=== PATIENT | female | born 1965 | race Caucasian/White ===

== ENCOUNTER 2017-06-20 20:11 | Observation (INO) | payer OTHER ==
[2017-06-20] MEDS ORDERED: NS 1,000 ML IV ONE (20:36)
[2017-06-20] MEDS ORDERED: ONDANSETRON 4 MG/2 ML VIAL IVP ONE (20:36)
[2017-06-20] MEDS ORDERED: HYDROmorphONE/DILAUDID 1 MG/ML INJ IVP ONE (20:36)
[2017-06-20] MEDS ORDERED: HYDROmorphONE/DILAUDID 1 MG/ML INJ ONE (20:37)
[2017-06-20] MEDS ORDERED: ONDANSETRON 4 MG/2 ML VIAL ONE (20:37)
--- NOTE | 2017-06-20 20:39 | EDPHY ---
H & P Stated Complaint: abd pain, possible diverticulitis Time Seen by Provider: 06/20/17 20:30 HPI/ROS: CHIEF COMPLAINT: Left lower quadrant pain HISTORY OF PRESENT ILLNESS: Patient is a 51-year-old female visiting from [facility] who comes to the emergency department complaining of left lower quadrant abdominal pain. She states that initially began last week and persisted for about 4 days before resolving. She has had diverticulitis before and thought that it might go away on its own. She felt better for 2 days and then her symptoms returned yesterday. She has not had a fever. She does feel nauseous but has not vomited. She has had diarrhea nonbloody. No urinary symptoms. No vaginal symptoms. History of hysterectomy. No other intra- abdominal surgeries. She has had a tummy tuck. REVIEW OF SYSTEMS: Constitutional: denies: chills, fever, recent illness, recent injury EENTM: denies: blurred vision, double vision, nose congestion Respiratory: denies: cough, shortness of breath Cardiac: denies: chest pain, irregular heart rate, lightheadedness, palpitations Gastrointestinal/Abdominal: denies: abdominal pain, diarrhea, nausea, vomiting, blood streaked stools Genitourinary: denies: dysuria, frequency, hematuria, pain Musculoskeletal: denies: joint pain, muscle pain Skin: denies: lesions, rash, jaundice, bruising Neurological: denies: headache, numbness, paresthesia, tingling, dizziness, weakness Hematologic/Lymphatic: denies: blood clots, easy bleeding, easy bruising Immunologic/allergic: denies: HIV/AIDS, transplant EXAM: GENERAL: Well-appearing, well-nourished and in no acute distress. HEAD: Atraumatic, normocephalic. EYES: Pupils equal round and reactive to light, extraocular movements intact, sclera anicteric, conjunctiva are normal. ENT: TMs normal, nares patent, oropharynx clear without exudates. Moist mucous membranes. NECK: Normal range of motion, supple without lymphadenopathy or JVD. LUNGS: Breath sounds clear to auscultation bilaterally and equal. No wheezes rales or rhonchi. HEART: Regular rate and rhythm without murmurs, rubs or gallops. ABDOMEN: Left lower quadrant tenderness with mild rebound tenderness. BACK: No CVA tenderness, no spinal tenderness, step-offs or deformities EXTREMITIES: Normal range of motion, no pitting or edema. No clubbing or cyanosis. NEUROLOGICAL: Cranial nerves II through XII grossly intact. Normal speech, normal gait. 5/5 strength, normal movement in all extremities, normal sensation PSYCH: Normal mood, normal affect. SKIN: Warm, dry, normal turgor, no visible rashes or lesions. Source: Patient Exam Limitations: No limitations - Personal History LMP (Females 10-55): Post Menopausal Current Tetanus/Diphtheria Vaccine: Yes - Medical/Surgical History Hx Asthma: No Hx Chronic Respiratory Disease: No Hx Diabetes: No Hx Cardiac Disease: No Hx Renal Disease: No Hx Cirrhosis: No Hx Alcoholism: No Hx HIV/AIDS: No Hx Splenectomy or Spleen Trauma: No Other PMH: PSHx: hysterectomy, back surgery 2000, breast augmentation and tummy tuck in 2005. PMHx: HTN, depression, anxiety, high cholesterol, diverticulitis - Family History Significant Family History: No pertinent family hx - Social History Smoking Status: Never smoked Alcohol Use: None Drug Use: None Constitutional: Initial Vital Signs Temperature (C) 36.9 C 06/20/17 20:13 Heart Rate 103 H 06/20/17 20:13 Respiratory Rate 16 06/20/17 20:13 Blood Pressure 119/74 06/20/17 20:13 O2 Sat (%) 89 L 06/20/17 20:13 O2 Delivery Mode Nasal Cannula O2 (L/minute) 4 Allergies/Adverse Reactions: No Known Allergies Allergy (Verified 06/21/17 08:25) Home Medications: Medication Instructions Recorded Atorvastatin Calcium [Lipitor 10 10 mg PO DAILY 06/21/17 mg (*)] Ibuprofen [Motrin (*)] 200 - 600 mg PO Q6H PRN 06/21/17 Lurasidone HCl [Latuda] 40 mg PO HS 06/21/17 Mometasone Furoate 2 spray EACHNARE DAILY 06/21/17 Olmesartan Medoxomil 40 mg PO DAILY 06/21/17 Sertraline HCl [Zoloft 50mg (*)] 200 mg PO DAILY 06/21/17 Triamterene/Hctz 37.5/25 1 tab PO DAILY 06/21/17 [Maxzide-25 (*)] levOFLOXACIN [levAQUIN (*)] 750 mg PO DAILY #8 tab 06/21/17 metroNIDAZOLE [Flagyl 500 mg (*)] 500 mg PO Q8H #24 tab 06/21/17 Medical Decision Making - Diagnostics EKG Interpretation: An EKG obtained and was read and documented in trace view. Please see trace view for full reading and report. Sinus rhythm no acute ischemic changes Imaging: Discussed imaging studies w/ call center consultant Radiologist ED Course/Re-evaluation: The patient has been slightly hypoxic since she arrived at triage. She denies being short of breath. She denies any cough. She denies any history of asthma or COPD or smoking. She does not have any chest pain. No leg pain or swelling. I turned off her oxygen and watched as her saturations dropped to 76% on room air. It increased appropriately to 92% on 2 L. We tried multiple occasions for the pulse oximeter. It is showing good waveform. The patient remained completely comfortable and in no distress even when her oxygen was 76%. She states that she felt normal. I will obtain a chest x-ray and EKG. 10:00 p.m. the patient remains hypoxic at 76% on room air after her DuoNeb. She remains asymptomatic. She is not tachypneic or tachycardic. She does not feel uncomfortable. I will order a CT angiogram to further evaluate specially considering her recent travel. 10:[address] p[address] we discussed the CT results. The patient is relieved. Her diverticulitis is mild and may be treated as an outpatient. It is unclear to me why she has persistently desaturated. She is currently holding 94% on room air. We have a different pulse oximeter on each hand. 10:57 p.m. the patient persistently desaturates when she is on room air. After a road test she desaturate to 82% and did feel slightly short of breath while walking. I will admit her to the medical service for further evaluation and observation. Possibly echocardiogram. She states that she has never had any heart problems. I discussed the case with Dr. Brown who will admit to the medical service. Differential Diagnosis: Partial list of the Differential diagnosis considered include but were not limited to; diverticulitis, bronchitis, reactive airway disease, PE and although unlikely based on the history and physical exam, I also considered dissection, valvular abnormality, ventricular septal defect, high-altitude pulmonary edema. - Data Points Laboratory Results: Laboratory Results 06/20/17 20:40 06/20/17 20:40 Medications Given: Discontinued Medications Acetaminophen (Tylenol) 650 mg PO Q4HRS PRN PRN Reason: Pain, Mild/Fever, Can Take PO Stop: 12/17/17 23:02 Last Admin: 06/21/17 11:17 Dose: 650 mg Hydrocodone Bitart/Acetaminophen ([place] 5/325) 1 - 2 tab PO Q4HRS PRN PRN Reason: Pain, Moderate Able to Take PO Stop: 06/30/17 23:02 Last Admin: 06/21/17 08:22 Dose: 1 tab Albuterol/Ipratropium (Duoneb) 3 ml IH EDNOW ONE Stop: 06/20/17 21:19 Last Admin: 06/20/17 21:37 Dose: 3 ml Hydromorphone HCl (Dilaudid) 0.5 mg IVP EDNOW ONE Stop: 06/20/17 20:37 Last Admin: 06/20/17 20:46 Dose: 0.5 mg Sodium Chloride (Ns) 1,000 mls @ 0 mls/hr IV EDNOW ONE; Wide Open PRN Reason: Protocol Stop: 06/20/17 20:37 Last Admin: 06/20/17 20:47 Dose: 1,000 mls Levofloxacin/Dextrose (Levaquin 750 Mg (Premix)) 150 mls @ 100 mls/hr IV EDNOW ONE PRN Reason: Protocol Stop: 06/20/17 22:05 Last Admin: 06/20/17 22:32 Dose: 150 mls Metronidazole/Sodium Chloride (Flagyl 500 Mg (Premix)) 100 mls @ 100 mls/hr IV EDNOW ONE PRN Reason: Protocol Stop: 06/20/17 21:36 Last Admin: 06/20/17 21:03 Dose: 100 mls Levofloxacin (Levaquin) 500 mg PO DAILY SONNY PRN Reason: Protocol Stop: 07/21/17 08:59 Last Admin: 06/21/17 08:22 Dose: 500 mg Metronidazole (Flagyl) 500 mg PO Q8H SONNY PRN Reason: Protocol Stop: 07/21/17 04:59 Last Admin: 06/21/17 13:34 Dose: 500 mg Ondansetron HCl (Zofran) 4 mg IVP EDNOW ONE Stop: 06/20/17 20:37 Last Admin: 06/20/17 20:47 Dose: 4 mg Sertraline HCl (Zoloft) 200 mg PO DAILY SONNY Stop: 12/18/17 12:44 Last Admin: 06/21/17 13:34 Dose: 200 mg Triamterene/HCTZ (Maxzide-25) 1 each PO DAILY SONNY Stop: 12/18/17 12:44 Last Admin: 06/21/17 13:34 Dose: 1 each Departure - Departure Disposition: [facility] Acute Clinical Impression: Diverticulitis large intestine w/o perforation or abscess w/o bleeding, Hypoxia Condition: Fair
[2017-06-20 20:50] LABS: PLATELET COUNT 412 10^3/uL (150-400)
[2017-06-20] MEDS ORDERED: IPRATROPIUM/ALBUTEROL 3 ML DEYVIAL IH ONE (21:18)
--- NOTE | 2017-06-20 21:30 | CPEKG ---
Heart Rate: 78 RR Interval: 769 P-R Interval: 156 QRSD Interval: 80 QT Interval: 380 QTC Interval: 433 P [place]: 51 QRS [place]: 32 T Wave [place]: 56 EKG Severity - NORMAL ECG - EKG Impression: SINUS RHYTHM Electronically Signed By: Jackson Gross 20-Jun-2017 21:31:21
[2017-06-20] MEDS ORDERED: IOPAMIDOL (ISOVUE 370) 100 ML BTL IV ONE (22:07)
[2017-06-20] MEDS ORDERED: HYDROCODONE/APAP 5/325 TAB PO PRN (23:03)
[2017-06-20] MEDS ORDERED: HYDROmorphONE/DILAUDID 1 MG/ML INJ IVP PRN (23:03)
[2017-06-20] MEDS ORDERED: ONDANSETRON 4 MG/2 ML VIAL IVP PRN (23:03)
--- NOTE | 2017-06-20 23:28 | PDGENHP ---
History and Physical - Chief Complaint LLQ abdominal pain - History of Present Illness Source - Patient provides history and appears reliable. EMR reviewed and case discussed with ED provider. HPI - Pleasant 51 yo F with pmhx significant for HTN, HLD, anxiety/depression, MONIQUE who presents to the ED with complaints of 1 week history of LLQ abdominal pain that is constant, cramping. Patient last exacerbation was 4 years ago that responded to conservative mangement and antibiotics. She reports increased fatigue in the past week but no fevers/chills. + nausea/no vomiting. At time of my interview patient reported that pain had nearly resolved s/p narcotics. Patient appeared to be doing well from GI standpoint after pain medications and antibiotics however it was noted that patient had worsening O2 saturations. Patient denies any dizziness or chest pain. No hx orthopnea, PND, LE edema. pt with history of MONIQUE normally on CPAP but had desaturations as low as mid 70% with exertion. Patient noted some lightheadedness when this occurred. History Information - Allergies/Home Medication List Allergies/Adverse Reactions: No Known Allergies Allergy (Unverified 06/20/17 20:12) Home Medications: Atorvastatin Calcium 06/20/17 [Last Taken Unknown] Latuda 06/20/17 [Last Taken Unknown] Olmesartan Medoxomil 06/20/17 [Last Taken Unknown] Sertraline HCl 06/20/17 [Last Taken Unknown] Triamterene 06/20/17 [Last Taken Unknown] I have personally reviewed and updated: family history, medical history, social history, surgical history - Past Medical History Additional medical history: HTN. MONIQUE on CPAP. depression/anxiety. HLD. obesity. diverticulitis (2012) - Surgical History Additional surgical history: Hyst. abdominoplasty. breast augmentation. laminectomy. back surery L4/5, L5/S1. colonoscopy - Family History Additional family history: mother - diverticulitis. HTN - Social History Smoking Status: Never smoked Alcohol Use: Occasionally Drug Use: None Additional social history: Patient lives in [facility]. She is visiting her son who lives locally. COR - FULL. patient desires daughter Fatou Mchugh or sister Frances Maldonado to act as proxy if needed. Review of Systems Review of Systems: ROS: 10pt was reviewed & negative except for what was stated in HPI & below EENMT: Reports: nose congestion (chronic rhinorrhea). Denies: sore throat Physical Exam Physical Exam: Selected Entries 06/20/17 20:13 Blood Pressure Automatic Method Heart Rate 103 H Respiratory 16 Rate O2 Sat (%) 89 L Temperature (C) 36.9 C Blood Pressure 119/74 Mean Arterial 89 Pressure (MAP) O2 Delivery Room Air Mode Temperature Oral Source Temp Pulse Resp BP Pulse Ox 36.9 C 84 18 108/61 96 06/20/17 20:13 06/20/17 22:33 06/20/17 22:33 06/20/17 22:33 06/20/17 22:33 Constitutional: no apparent distress, appears nourished, obese, No unkempt Eyes: PERRL, anicteric sclera, EOMI Ears, Nose, Mouth, Throat: dry mucous membranes, other (no nasal discharge. ) Cardiovascular: regular rate and rhythym, no murmur, rub, or gallop, pulses symmetric bilaterally Peripheral Pulses: 2+: dorsalis-pedis (R), dorsalis-pedis (L) Respiratory: no respiratory distress, no rales or rhonchi, clear to auscultation Gastrointestinal: soft, non-tender abdomen, no palpable masses, distension ( mildly distended. soft. ), other (TTP LLQ with light palpation. hypoactive BS.) , No guarding, No rebound Genitourinary: no bladder tenderness, No zapata in urethra Skin: warm, normal color, No rash Musculoskeletal: full muscle strength, No joint tenderness, No generalized weakness Neurologic: AAOx3, sensation intact bilaterally, other (nonfocal exam) Psychiatric: not anxious, not encephalopathic, thought process linear Lab Data & Imaging Review 06/21/17 04:43 06/21/17 04:43 WBC 14.49 10^3/uL (3.80-9.50) H 06/20/17 20:40 RBC 4.37 10^6/uL (4.18-5.33) 06/20/17 20:40 Hgb 13.0 g/dL (12.6-16.3) 06/20/17 20:40 Hct 38.0 % (38.0-47.0) 06/20/17 20:40 MCV 87.0 fL (81.5-99.8) 06/20/17 20:40 MCH 29.7 pg (27.9-34.1) 06/20/17 20:40 MCHC 34.2 g/dL (32.4-36.7) 06/20/17 20:40 RDW 12.3 % (11.5-15.2) 06/20/17 20:40 Plt Count 412 10^3/uL (150-400) H 06/20/17 20:40 MPV 9.3 fL (8.7-11.7) 06/20/17 20:40 Neut % (Auto) 78.3 % (39.3-74.2) H 06/20/17 20:40 Lymph % (Auto) 13.4 % (15.0-45.0) L 06/20/17 20:40 [place] % (Auto) 5.5 % (4.5-13.0) 06/20/17 20:40 Eos % (Auto) 1.9 % (0.6-7.6) 06/20/17 20:40 Baso % (Auto) 0.6 % (0.3-1.7) 06/20/17 20:40 Nucleat RBC Rel Count 0.0 % (0.0-0.2) 06/20/17 20:40 Absolute Neuts (auto) 11.36 10^3/uL (1.70-6.50) H 06/20/17 20:40 Absolute Lymphs (auto) 1.94 10^3/uL (1.00-3.00) 06/20/17 20:40 Absolute Monos (auto) 0.79 10^3/uL (0.30-0.80) 06/20/17 20:40 Absolute Eos (auto) 0.28 10^3/uL (0.03-0.40) 06/20/17 20:40 Absolute Basos (auto) 0.08 10^3/uL (0.02-0.10) 06/20/17 20:40 Absolute Nucleated RBC 0.00 10^3/uL (0-0.01) 06/20/17 20:40 Immature Gran % 0.3 % (0.0-1.1) 06/20/17 20:40 Immature Gran # 0.04 10^3/uL (0.00-0.10) 06/20/17 20:40 Sodium 138 mEq/L (134-144) 06/20/17 20:40 Potassium 3.8 mEq/L (3.5-5.2) 06/20/17 20:40 Chloride 97 mEq/L (97-110) 06/20/17 20:40 Carbon Dioxide 27 mEq/l (22-31) 06/20/17 20:40 Anion Gap 14 mEq/L (8-16) 06/20/17 20:40 BUN 12 mg/dL (7-23) 06/20/17 20:40 Creatinine 1.0 mg/dL (0.6-1.0) 06/20/17 20:40 Estimated GFR 58 06/20/17 20:40 Glucose 129 mg/dL (70-100) H 06/20/17 20:40 Calcium 9.7 mg/dL (8.5-10.4) 06/20/17 20:40 Total Bilirubin 0.5 mg/dL (0.1-1.4) 06/20/17 20:40 Conjugated Bilirubin 0.3 mg/dL (0.0-0.5) 06/20/17 20:40 Unconjugated Bilirubin 0.2 mg/dL (0.0-1.1) 06/20/17 20:40 AST 25 IU/L (14-46) 06/20/17 20:40 ALT 35 IU/L (9-52) 06/20/17 20:40 Alkaline Phosphatase 92 IU/L (38-126) 06/20/17 20:40 Total Protein 7.0 g/dL (6.3-8.2) 06/20/17 20:40 Albumin 4.3 g/dL (3.5-5.0) 06/20/17 20:40 Lipase 168 IU/L (23-300) 06/20/17 20:40 Urine Color PALE YELLOW 06/20/17 21:35 Urine Appearance CLEAR 06/20/17 21:35 Urine pH 8.0 (5.0-7.5) H 06/20/17 21:35 Ur Specific [place] 1.004 (1.002-1.030) 06/20/17 21:35 Urine Protein NEGATIVE (NEGATIVE) 06/20/17 21:35 Urine Ketones NEGATIVE (NEGATIVE) 06/20/17 21:35 Urine Blood NEGATIVE (NEGATIVE) 06/20/17 21:35 Urine Nitrate NEGATIVE (NEGATIVE) 06/20/17 21:35 Urine Bilirubin NEGATIVE (NEGATIVE) 06/20/17 21:35 Urine Urobilinogen NEGATIVE EU (0.2-1.0) 06/20/17 21:35 Ur Leukocyte Esterase NEGATIVE (NEGATIVE) 06/20/17 21:35 Urine RBC 3-5 /hpf (0-3) H 06/20/17 21:35 Urine WBC 1-3 /hpf (0-3) 06/20/17 21:35 Ur Epithelial Cells TRACE /lpf (NONE-1+) 06/20/17 21:35 Urine Glucose NEGATIVE (NEGATIVE) 06/20/17 21:35 Imaging Review: Chest, PA and lateral. History: Dyspnea Findings: Heart size is within normal limits. Pulmonary vascularity is normal. The lungs are clear. No evidence of pleural effusion or pneumothorax. Minimal degenerative change is seen in the thoracic spine. Impression: No evidence of acute cardiopulmonary abnormality. Dictated By: Hubert Marin MD CT Scan of the Abdomen and Pelvis (With Contrast) Indication: Abd Pain . Comparison: None Technique: 90 mL of Isovue-370 were given intravenously by machine power injection. Multidetector helical CT imaging was performed from the diaphragm to the symphysis pubis. Dose reduction techniques were utilized. Findings: Abdomen: Liver is normal in attenuation. No focal liver lesion. Gallbladder is unremarkable. Pancreas unremarkable. Spleen is unremarkable. Both adrenal glands are normal in size and appearance. Both kidneys enhance normally without evidence for hydronephrosis. Subcentimeter hypodense lesion is seen in the inferior pole right kidney which is too small to characterize and most likely represents a renal cortical cyst. No evidence for aneurysmal dilatation the abdominal aorta. Pelvis: Diverticulosis is seen throughout the colon. There is wall thickening and adjacent stranding in the mesentery in the sigmoid colon indicating diverticulitis. No evidence for an abnormal fluid collection indicate abscess. No significant free fluid in the pelvis. No evidence for free intraperitoneal air. Appendix is unremarkable. Degenerative change lumbar spine. Impression: Mild diverticulosis sigmoid colon. Chest X-Ray results: normal Visualized and Interpreted imaging results: Yes Visualized and Interpreted EKG results: Yes EKG Interpretation: Positive for: normal sinsus rhythm EKG additional interpertation: NSR 70s. no acute ST changes. QTc 433 Assessment & Plan Assessment: 51 yo F presents to ED with c/o LLQ pain similar to prev episode of diverticulitis. patient noted to be hypoxic with exertion. Hypoxia (Acute) - etiology is unclear at this time with normal imaging. Patient without previously known issues of hypoxia at sea level or altitude. visiting from [place] area. Patient does note SOB with exertion in the ED with O2 sats down to70s.When she presented O2 sat was already noted to be 89%, however hypoxia does appear to have worsened after narcotics received in the ED for her abdominal pain. denies chest pain. Plan for echo in AM. continue to titrate O2 down as tolerated. Diverticulitis large intestine w/o perforation or abscess w/o bleeding (Acute). patient nausea now controlled. plan to transition to po flagyl/levaquin. pain improved s/p dilaudid in ED. tylenol. noted to patient if possible to minimize use of dilaudid as this could be contributing to her hypoxia. chronic medical problems benign essential HTN - resume patient home medications when med rec available. depression/anxiety - stable. continue sertraline and latuda. MONIQUE - O2 at hs. patient awaiting CPAP fitting at home. HLD - atorvastatin obesity (BMI 30.9) - mobilize. regular diet. FEN - diet as tolerated. electrolyte replacement prn. PPX - SCDs. holding anticoagulation. low risk and anticipate short hospital stay. COR - FULL Dispo - Admit to observation on medical floor.
[2017-06-21] MEDS: ACETAMINOPHEN 325 MG TAB PO PRN ×2 (00:03→11:17)
[2017-06-21 00:11] VITALS: RESP 16
[2017-06-21] MEDS: metroNIDAZOLE 500 MG TAB PO SCH ×2 (04:44→13:34)
[2017-06-21 04:54] LABS: PLATELET COUNT 327 10^3/uL (150-400)
[2017-06-21 07:35] VITALS: PULSE 73; TEMP 98; O2SAT 96
--- NOTE | 2017-06-21 12:40 | HOSPPROG ---
Hospitalist Progress Note Assessment/Plan: 51 yo F presents to ED with c/o LLQ pain similar to prev episode of diverticulitis. patient noted to be hypoxic with exertion. *acute Hypoxemia -CTA is negative -O2 sats on room air 92-94% during my evaluation -she has MONIQUE and is here visiting from the [facility] area *Diverticulitis -Flagyl and Levaquin *HTN -stable *MONIQUE -getting CPAP machine *HLD -statin *depression, anxiety -stable *Plan: dc , to f/u with her PCP Subjective: Marysol says she is having some LLQ pain but ate a regular lunch without it increasing. Objective: Vital Signs Temp Pulse Resp BP Pulse Ox 36.7 C 73 16 109/77 96 06/21/17 07:33 06/21/17 07:33 06/21/17 07:33 06/21/17 07:33 06/21/17 07:33 Laboratory Results 06/21/17 04:43 06/21/17 04:43 06/20/17 06/21/17 06/22/17 05:59 05:59 05:59 Intake Total 1600 Output Total 500 Balance 1100 - Physical Exam Constitutional: appears nourished, uncomfortable Eyes: PERRL Ears, Nose, Mouth, Throat: hearing normal Cardiovascular: regular rate and rhythym Respiratory: no respiratory distress Gastrointestinal: normoactive bowel sounds, tenderness (llq) Skin: warm Musculoskeletal: full muscle strength Neurologic: AAOx3 Psychiatric: interacting appropriately ICD10 Worksheet Patient Problems: Problems Problem Status Onset Diverticulitis large intestine w/o perforation or abscess w/o bleeding Acute Hypoxia Acute
[2017-06-21] MEDS ORDERED: IBUPROFEN 200 MG TAB PO PRN (12:43)
[2017-06-21] MEDS ORDERED: SERTRALINE HCL 50 MG TAB PO SCH (12:45)
[2017-06-21] MEDS ORDERED: TRIAMTERENE/HCTZ 37.5/25 1 EACH TAB PO SCH (12:45)
[2017-06-21 13:35] VITALS: BP 113/71
--- NOTE | 2017-06-21 15:07 | ASDISCHSUM ---
Discharge Information Plan Status:Home with No Needs Medically Cleared to Leave:06/20/2017 Discharge Date:06/21/2017 02:42 PM CM D/C Disposition:Home, Routine, Self-Care ADT D/C Disposition:Home, Routine, Self-Care Projected Discharge Date:06/21/2017 12:00 AM Transportation at D/C:Family Discharge Delay Reason: Follow-Up Date:06/21/2017 12:00 AM Discharge Slot: Final Diagnosis:L lQ Pain, DVT, Hypoxia Placement Information Patient Contact Information Contact Name:GIANCARLO Relationship:Son Address: City: [facility] Phone: [facility]/NXVISION Code: Email: Financial Information Financial Class:HMO and PPO Plans Primary Plan Desc:REMBERTO PPO POS HMO SIG ADM Primary Plan Number:[id number] Secondary Plan Desc: Secondary Plan Number: Assessment Information Case Management Discharge Plan Note Case Management Discharge Discharge Order Complete? Answers: Yes Patient to Obtain Answers: via Family Medications Transportation Arranged Answers: Family/Friends Transport will Pick (Date 06/21/2017 12:00 AM & Time) Family Notified Answers: Yes Notes: Son to transport home Discharge Comments Notes: 51 year opld female admitted for L LQ pain, DVT, Hypoxia. She has a hx of HTN, HLD, MONIQUE-Cpap, Obesity, Anxiety/Depression. Patient visiting son from [place], [place]. Symptoms better, no blockage noted. Discharged to son's home, no needs. Date Signed: 06/21/2017 03:06 PM Electronically Signed By:Sheri Posada LCSW Intervention Information
[2017-06-21] MEDS ORDERED: LURASIDONE HCL 40 MG TAB PO SCH (21:00)
--- NOTE | 2017-06-21 22:12 | GDS ---
[f rep st] DISCHARGE SUMMARY DISCHARGE DIAGNOSES: 1. Acute hypoxemia. 2. Diverticulitis. 3. Hypertension. 4. Obstructive sleep apnea. 5. Hyperlipidemia. 6. Depression/anxiety. HISTORY OF PRESENT ILLNESS: Patient is a 51-[facility]-old [place], [facility] [place] [facility] [place] [facility] She presented to the emergency room complaining of left lower quadrant pain similar to previous episodes of diverticulitis. She was also noted to be significantly hypoxic in the emergency room. D ue to the hypoxemia, she had a CTA of the chest performed, which showed no evidence of thrombo pulmon harley embolic disease. A CT of the abdomen was performed, which showed diverticulosis is seen througho ut the colon. She had wall thickening and adjacent stranding in the mesentery in the sigmoid colon i ndicating diverticulitis. She had no evidence for abnormal fluid collection indicating abscess. She had no significant free fluid in the pelvis. HOSPITAL COURSE PER PROBLEM: 1. Acute hypoxemia. I suspect this was most likely secondary from getting narcotics and being very sedate. During my evaluation, her oxygen levels were ranging from 92% to 96%. CTA is negative. She also has obstructive sleep apnea. She is also at high altitude, visiting from the [place] area. 2. Diverticulitis. She tolerated a regular diet. Her pain did increase a bit with eating. Recomme nding that she stay on clear liquids for the next 2 days and then a low-residue diet. Will continue Flagyl, Levaquin. Recommended no alcohol at all while she is on Flagyl. Also told her Levaquin can affect her tendons and can cause ruptured tendon. 3. Hypertension. Stable. 4. Obstructive sleep apnea. She is in the process of getting a CPAP machine. 5. Hyperlipidemia. On statin therapy. 6. Depression/anxiety. Stable. DISCHARGE CONDITION: Stable. Blood pressure is 113/71, heart rate is 73, respiratory rate is 16, O2 sats on room air are 92% to 94%, temperature is 36.7 Celsius. MEDICATIONS AT DISCHARGE: Please see the EMR. DISCHARGE INSTRUCTIONS: 1. To follow up with her primary care provider. 2. Recommending she follow up with a compressor service technician and get a colonoscopy in 6 weeks once her sy mptoms completely resolve. Copy requested to: PCP /[id number]/MODL
[2017-06-22] MEDS ORDERED: ATORVASTATIN CALCIUM 10 MG TAB PO SCH (09:00)
== END 2017-06-21 14:42 | disposition home or self-care (01) ==
LOC: F3N 23:49
PROVIDERS: ADMIT Family Medicine; ATTEND Internal Medicine Pulmonary Disease
DX: K57.32 Diverticulitis of large intestine without perforation or abscess without bleeding (principal); R09.02 Hypoxemia; I10 Essential (primary) hypertension; G47.33 Obstructive sleep apnea (adult) (pediatric); F32.9 Major depressive disorder, single episode, unspecified; F41.9 Anxiety disorder, unspecified; E66.9 Obesity, unspecified; Z68.30 Body mass index [BMI] 30.0-30.9, adult; Z78.0 Asymptomatic menopausal state
CPT/HCPCS: 71020; 71275; 74177; 93005; G0378; 96365; J1170; J1956; J2405; Q9967